=== PATIENT | male | born 1960 | race African-American/Black ===

== ENCOUNTER 2016-05-01 13:24 | Emergency (ER) | payer MEDICARE ==
[~2016-05-01 13:24] MED LIST: Iopamidol 370 76% 100 ML VIAL ONE
[2016-05-01] MEDS ORDERED: Sodium Chloride 0.9% 1,000 ML ONE (14:04)
[2016-05-01] MEDS ORDERED: Ondansetron HCl/PF 4 MG/2 ML Vial ONE ×2 (14:04→16:44)
[2016-05-01 14:28] LABS: Bilirubin Negative (Negative); Blood, Urine Trace (Negative); Glucose, Urine (Dipstick) Negative (Negative); Leukocyte Negative (Negative); Nitrite Negative (Negative); Protein, Urine (Dipstick) 30 mg/dL (Neg-Trace); Specific Gravity, Urine 1.015 (1.005-1.030)
[2016-05-01 14:29] LABS: Clarity Hazy (Clear)
[2016-05-01 14:31] LABS: #Basophils 0.1 thou/uL (0.0-0.2); #Eosinphils 0.1 thou/uL (0.0-0.7); #Lymphocytes 1.1 thou/uL (1.20-3.40); #Monocytes 0.8 thou/uL (0.11-0.59); #Neutrophils 5.4 thou/uL (1.40-6.50); %Basophils 1.8 % (0.0-1.0); %Eosinophils 1.9 % (0.0-10.0); %Lymphocytes 14.7 % (21.0-51.0); %Monocytes 11.1 % (0.0-10.0); %Neutrophils 70.5 % (42.0-75.0); Hemoglobin 14.6 g/dL (14.0-18.0); Mean Corpuscular HGB CONC 34.4 g/dL (32.0-36.0); Mean Corpuscular Hemoglobin 31.6 pg (27.0-31.0); Mean Platelet Volume 7.1 fL (7.4-10.4); Platelet Count 260 thou/uL (130-400); Red Blood Cell (RBC) Count 4.61 mill/uL (4.70-6.10); White Blood Cell (WBC) Count 7.6 thou/uL (4.8-10.8)
[2016-05-01 14:32] LABS: Bacteria/HPF Rare-Few HPF (None Seen); RBC/HPF 0-3 HPF (0-3); Squamous Epithelial None Seen HPF (0-3); WBC/HPF None Seen HPF (0-3)
[2016-05-01 14:47] LABS: ALT (SGPT) 9 U/L (0-55); AST (SGOT) 15 U/L (5-34); Albumin 3.8 g/dL (3.5-5.0); Alkaline Phosphatase 70 U/L (40-150); Anion Gap 13 mmol/L (10-20); BUN (Urea Nitrogen) 13 mg/dL (8.4-25.7); Bilirubin, Total 1.3 mg/dL (0.2-1.2); CK (CPK) 53 U/L (30-200); Calc. Creatinine Clearance 0 mL/min (70-130); Calcium 8.8 mg/dL (7.8-10.44); Carbon Dioxide 21 mmol/L (22-29); Chloride 109 mmol/L (98-107); Estimated GFR-MDRD 87; Globulin 3.2 g/dL (2.4-3.5); Glucose 87 mg/dL (70-105); Potassium 3.7 mmol/L (3.5-5.1); Sodium 139 mmol/L (136-145)
[2016-05-01 14:48] LABS: CKMB 0.6 ng/mL (0-6.6); Troponin I Less than 0.010 ng/mL (< 0.028)
--- NOTE | 2016-05-01 17:03 | CT ---
CT OF THE ABDOMEN AND PELVIS WITH IV CONTRAST: Indication: History of abdominal pain. Comparison: 02-14-11 FINDINGS: There is a mild subsegmental atelectasis. There is stable 1.4 cm heterogeneously enhancing lesion within the right hepatic duct suspicious for hemangioma. Additional 1.8 cm hypodensity within the right hepatic lobe is stable, also likely refl ecting a small hemangioma. Gallbladder is surgically absent. Pancreas and adrenal glands are normal appearing. There are multiple right renal cysts. There are ti ny hypodensities within the left kidney that cannot be further characterized. There is some subtle fatty infiltration seen surrounding the celiac axis posterior to the pancreas. This is nonspecific and best seen on Image 14 of Series 2. No drainable fluid collection is evident. There is normal appendix of the right lower quadrant. Prostate is enlarged measuring 6 cm. There are fat containing inguinal hernias. There is scattered colonic diverticula without evidence of diverticulitis. There is no evidence of o bstruction. There are scattered degenerative and osteoarthritic change. IMPRESSION: 1. Nonspecific fatty infiltration seen posterior to the pancreas near the celiac axis. Findings may reflect changes of pancreatitis. Recommend correlation. No drainable fluid collection is evident. 2. Stable heterogeneous predominately hypodense lesions within the right hepatic lobe when compared to 02-14-11, suspicious for cavernous hemangiomas. 3. Renal hypodensities bilaterally, most suspicious for small cysts. 4. Colonic diverticulosis. 5. Prostate enlargement. POS: [facility]
[2016-05-01 17:10] LABS: Amylase 63 U/L (25-125); Lipase 14 U/L (8-78)
== END 2016-05-01 17:43 | disposition home or self-care (01) ==
LOC: NAV ERS 13:24
DX: R10.33 Periumbilical pain (principal); R10.31 Right lower quadrant pain; I11.0 Hypertensive heart disease with heart failure; I50.9 Heart failure, unspecified; I25.2 Old myocardial infarction; Z79.82 Long term (current) use of aspirin; Z79.899 Other long term (current) drug therapy
CPT/HCPCS: 74177; 80053; 81003; 81015; 82150; 82550; 82553; 83690; 84484; 85025; 93005; 96361; 96374; 96375; 96376; J1170; J2270; J2405; J7050

== ENCOUNTER 2016-05-02 13:08 | Emergency (ER) | payer MEDICARE ==
[2016-05-02] MEDS ORDERED: Pantoprazole 40 MG VIAL ONE (13:36)
[2016-05-02] MEDS ORDERED: Sodium Chloride 0.9% 1,000 ML ONE (13:36)
[2016-05-02] MEDS ORDERED: Ondansetron HCl/PF 4 MG/2 ML Vial ONE (13:36)
[2016-05-02 14:10] LABS: Bilirubin Negative (Negative); Blood, Urine Moderate (Negative); Clarity Clear (Clear); Glucose, Urine (Dipstick) Negative (Negative); Leukocyte Negative (Negative); Nitrite Negative (Negative); Protein, Urine (Dipstick) 100 mg/dL (Neg-Trace)
[2016-05-02 14:14] LABS: ALT (SGPT) 20 U/L (0-55); AST (SGOT) 16 U/L (5-34); Albumin 3.9 g/dL (3.5-5.0); Alkaline Phosphatase 87 U/L (40-150); Anion Gap 14 mmol/L (10-20); BUN (Urea Nitrogen) 9 mg/dL (8.4-25.7); Bilirubin, Total 1.4 mg/dL (0.2-1.2); Calc. Creatinine Clearance 0 mL/min (70-130); Calcium 8.9 mg/dL (7.8-10.44); Carbon Dioxide 24 mmol/L (22-29); Chloride 106 mmol/L (98-107); Estimated GFR-MDRD 72; Globulin 3.5 g/dL (2.4-3.5); Glucose 99 mg/dL (70-105); Lipase 23 U/L (8-78); Potassium 4.1 mmol/L (3.5-5.1); Protein, Total 7.4 g/dL (6.0-8.3); Sodium 140 mmol/L (136-145)
[2016-05-02 14:20] LABS: Hemoglobin 15.5 g/dL (14.0-18.0); Mean Corpuscular HGB CONC 34.4 g/dL (32.0-36.0); Mean Corpuscular Hemoglobin 31.8 pg (27.0-31.0); Mean Corpuscular Volume 92.3 fl (80.0-94.0); Mean Platelet Volume 6.7 fL (7.4-10.4); Platelet Count 279 thou/uL (130-400); RBC Distribution Width 11.2 % (11.5-14.5); Red Blood Cell (RBC) Count 4.87 mill/uL (4.70-6.10); White Blood Cell (WBC) Count 7.2 thou/uL (4.8-10.8)
[2016-05-02 14:21] LABS: Band 1 % (5-11); Lymphocytes 20 % (21-51); MDiff Complete? YES; Monocytes 9 % (0-10); Neutrophil 70 % (42-75); PLT Morphology Comment Appears Adequate
[2016-05-02 14:24] LABS: Amphetamine Not Detected (NotDetected); Barbiturates Screen Not Detected (NotDetected); Benzodiazepine Screen Not Detected (NotDetected); Cocaine Metabolite Screen Not Detected (NotDetected); Medtox Control Line Valid? VALID (VALID); Methadone Not Detected (NotDetected); Methamphetamine Not Detected (NotDetected); Opiate Screen Detected (NotDetected); Oxycodone Screen Not Detected (NotDetected); Phencyclidine (PCP) Not Detected (NotDetected); THC/Cannabinoid Screen Not Detected (NotDetected); Tricyclic Screen Not Detected (NotDetected)
[2016-05-02] MEDS ORDERED: Lidocaine Viscous Sol 2% 15 ml UD Cup ONE (14:36)
[2016-05-02] MEDS ORDERED: Mag-Al Plus 1200 MG/1200 MG/120 MG/30 ML UDCUP ONE (14:36)
== END 2016-05-02 15:25 | disposition home or self-care (01) ==
LOC: NAV ERS 13:08
DX: K29.70 Gastritis, unspecified, without bleeding (principal); I11.0 Hypertensive heart disease with heart failure; I50.9 Heart failure, unspecified; I25.2 Old myocardial infarction; Z79.82 Long term (current) use of aspirin; Z79.899 Other long term (current) drug therapy
CPT/HCPCS: 80053; 80306; 81003; 83690; 83880; 85025; 96361; 96374; 96375; 96376; C9113; J2270; J2405; J7050

== ENCOUNTER 2016-07-27 16:37 | Emergency (ER) | payer MEDICARE ==
[2016-07-27] MEDS ORDERED: Ondansetron HCl/PF 4 MG/2 ML Vial ONE (17:12)
[2016-07-27] MEDS ORDERED: Sodium Chloride 0.9% 1,000 ML ONE (17:12)
[2016-07-27 17:38] LABS: #Basophils 0.1 thou/uL (0.0-0.2); #Eosinphils 0.2 thou/uL (0.0-0.7); #Lymphocytes 1.1 thou/uL (1.20-3.40); #Monocytes 0.6 thou/uL (0.11-0.59); #Neutrophils 4.1 thou/uL (1.40-6.50); %Basophils 1.5 % (0.0-1.0); %Lymphocytes 17.4 % (21.0-51.0); %Monocytes 10.1 % (0.0-10.0); Hemoglobin 15.9 g/dL (14.0-18.0); Mean Corpuscular HGB CONC 32.5 g/dL (32.0-36.0); Mean Corpuscular Hemoglobin 29.1 pg (27.0-31.0); Mean Corpuscular Volume 89.8 fl (80.0-94.0); Mean Platelet Volume 6.3 fL (7.4-10.4); Platelet Count 275 thou/uL (130-400); RBC Distribution Width 11.4 % (11.5-14.5); Red Blood Cell (RBC) Count 5.44 mill/uL (4.70-6.10); White Blood Cell (WBC) Count 6.1 thou/uL (4.8-10.8)
[2016-07-27 17:48] LABS: Blood, Urine Small (Negative); Glucose, Urine (Dipstick) Negative (Negative); Leukocyte Trace (Negative); Nitrite Positive (Negative); Protein, Urine (Dipstick) > or equal to 300 mg/dL (Neg-Trace); Urobilinogen 0.2 mg/dL (0.2-1.0); pH, Urine 5.5 (5.0-9.0)
[2016-07-27 17:51] LABS: Clarity SL HAZY (Clear); Icto Negative (Negative)
[2016-07-27 17:51] LABS: ALT (SGPT) 13 U/L (8-55); AST (SGOT) 12 U/L (5-34); Albumin 4.2 g/dL (3.5-5.0); Alkaline Phosphatase 66 U/L (40-150); Anion Gap 14 mmol/L (10-20); BUN (Urea Nitrogen) 18 mg/dL (8.4-25.7); Bilirubin, Total 1.4 mg/dL (0.2-1.2); CK (CPK) 40 U/L (30-200); CKMB 1.2 ng/mL (0-6.6); Calc. Creatinine Clearance 0 mL/min (70-130); Calcium 9.5 mg/dL (7.8-10.44); Carbon Dioxide 19 mmol/L (22-29); Chloride 108 mmol/L (98-107); Estimated GFR-MDRD 80; Globulin 3.2 g/dL (2.4-3.5); Glucose 93 mg/dL (70-105); Lipase 28 U/L (8-78); Potassium 4.1 mmol/L (3.5-5.1); Protein, Total 7.4 g/dL (6.0-8.3); Sodium 137 mmol/L (136-145); Troponin I 0.011 ng/mL (< 0.028)
[2016-07-27 17:57] LABS: Bacteria/HPF Rare-Few HPF (None Seen); RBC/HPF 0-3 HPF (0-3); Specific Gravity, Urine 1.033 (1.002-1.036); Squamous Epithelial 0-3 HPF (0-3); WBC/HPF 0-3 HPF (0-3)
[2016-07-27] MEDS ORDERED: Acetaminophen 500 MG TAB ONE (18:46)
== END 2016-07-27 18:52 | disposition home or self-care (01) ==
LOC: NAV ERS 16:37
DX: R19.7 Diarrhea, unspecified (principal); I25.10 Atherosclerotic heart disease of native coronary artery without angina pectoris; I25.2 Old myocardial infarction; I11.0 Hypertensive heart disease with heart failure; I50.9 Heart failure, unspecified; G45.9 Transient cerebral ischemic attack, unspecified; Z79.82 Long term (current) use of aspirin; Z79.899 Other long term (current) drug therapy
CPT/HCPCS: 80053; 81003; 81015; 82150; 82550; 82553; 83690; 84484; 85025; 87086; 93005; 96361; 96374; J2405; J7050

== ENCOUNTER 2017-04-30 17:37 | Emergency (ER) | payer MEDICARE ==
[2017-04-30] MEDS ORDERED: Cyclobenzaprine 10 MG TAB ONE (17:53)
[2017-04-30] MEDS ORDERED: Ketorolac Tromethamine 60 MG/2 ML VIAL ONE (17:53)
== END 2017-04-30 18:44 | disposition home or self-care (01) ==
LOC: NAV ERS 17:37
DX: M54.5 Low back pain (principal); I25.10 Atherosclerotic heart disease of native coronary artery without angina pectoris; I11.0 Hypertensive heart disease with heart failure; I50.9 Heart failure, unspecified; M19.90 Unspecified osteoarthritis, unspecified site; I25.2 Old myocardial infarction; Z86.73 Personal history of transient ischemic attack (TIA), and cerebral infarction without residual deficits; Z79.02 Long term (current) use of antithrombotics/antiplatelets; Z79.82 Long term (current) use of aspirin; Z79.899 Other long term (current) drug therapy
CPT/HCPCS: 96372; J1885

== ENCOUNTER 2017-07-24 20:41 | Emergency (ER) | payer MEDICARE ==
[2017-07-24] MEDS ORDERED: Morphine 4 MG/ML Carpuject ONE ×2 (21:01→21:41)
[2017-07-24 21:09] LABS: #Basophils 0.2 thou/uL (0.0-0.2); #Eosinphils 0.2 thou/uL (0.0-0.7); #Lymphocytes 1.7 thou/uL (1.20-3.40); #Monocytes 0.9 thou/uL (0.11-0.59); #Neutrophils 4.8 thou/uL (1.40-6.50); %Eosinophils 2.4 % (0.0-10.0); %Lymphocytes 21.8 % (21.0-51.0); %Monocytes 11.5 % (0.0-10.0); %Neutrophils 62.2 % (42.0-75.0); Hemoglobin 14.6 g/dL (14.0-18.0); Mean Corpuscular HGB CONC 32.3 g/dL (32.0-36.0); Mean Corpuscular Hemoglobin 29.2 pg (27.0-31.0); Mean Corpuscular Volume 90.2 fL (78.0-98.0); Mean Platelet Volume 7.2 fL (7.4-10.4); Platelet Count 272 thou/uL (130-400); RBC Distribution Width 11.5 % (11.5-14.5); Red Blood Cell (RBC) Count 5.02 mill/uL (4.70-6.10); White Blood Cell (WBC) Count 7.8 thou/uL (4.8-10.8)
[2017-07-24 21:14] LABS: PTT 27.8 SEC (22.9-36.1); Prothrombin Time 13.5 SEC (12.0-14.7)
[2017-07-24 21:23] LABS: CKMB 0.5 ng/mL (0-6.6); Troponin I Less than 0.010 ng/mL (< 0.028)
[2017-07-24 21:30] LABS: ALT (SGPT) 16 U/L (8-55); AST (SGOT) 11 U/L (5-34); Albumin 4.1 g/dL (3.5-5.0); Alkaline Phosphatase 60 U/L (40-150); Anion Gap 12 mmol/L (10-20); BUN (Urea Nitrogen) 18 mg/dL (8.4-25.7); Bilirubin, Total 0.8 mg/dL (0.2-1.2); CK (CPK) 62 U/L (30-200); Calc. Creatinine Clearance 0 mL/min (70-130); Calcium 9.4 mg/dL (7.8-10.44); Carbon Dioxide 26 mmol/L (22-29); Chloride 107 mmol/L (98-107); Estimated GFR-MDRD 63; Glucose 83 mg/dL (70-105); Potassium 4.4 mmol/L (3.5-5.1); Protein, Total 7.1 g/dL (6.0-8.3); Sodium 141 mmol/L (136-145)
--- NOTE | 2017-07-24 21:33 | RAD ---
RADIOGRAPH CHEST 1 VIEW: 07/24/17 HISTORY: 56-year-old male with acute chest pain and tachycardia. FINDINGS: There is no air space density, pulmonary edema, or pneumothorax. The lateral costophrenic angles are sharp. There is magnification of the cardiac shadow due to lordotic positioning. There are sternotom y wires. There are surgical clips overlying the left upper cardiac shadow and mediastinum. IMPRESSION: 1. No acute pulmonary findings. 2. Status post coronary artery bypass graft surgery is evidence for coronary atherosclerotic dis ease. maris [] POS: [facility]
== END 2017-07-24 22:13 | disposition short-term general hospital (02) ==
LOC: NAV ERS 20:41
DX: R07.9 Chest pain, unspecified (principal); M19.90 Unspecified osteoarthritis, unspecified site; I25.10 Atherosclerotic heart disease of native coronary artery without angina pectoris; I25.2 Old myocardial infarction; I11.0 Hypertensive heart disease with heart failure; I50.9 Heart failure, unspecified; Z86.73 Personal history of transient ischemic attack (TIA), and cerebral infarction without residual deficits; Z79.899 Other long term (current) drug therapy; Z79.82 Long term (current) use of aspirin
CPT/HCPCS: 71045; 80053; 82553; 84484; 85025; 85610; 85730; 93005; 94760; 96374; 96376; J2270

== ENCOUNTER 2017-09-11 18:12 | Emergency (ER) | payer MEDICARE ==
[2017-09-11] MEDS ORDERED: methylPREDNISolone Acetate 40 mg/ml Vial ONE (18:40)
== END 2017-09-11 19:05 | disposition home or self-care (01) ==
LOC: NAV ERS 18:12
DX: T78.40XA Allergy, unspecified, initial encounter (principal); I11.0 Hypertensive heart disease with heart failure; I50.9 Heart failure, unspecified; I25.10 Atherosclerotic heart disease of native coronary artery without angina pectoris; I25.2 Old myocardial infarction; Z86.73 Personal history of transient ischemic attack (TIA), and cerebral infarction without residual deficits; Z79.82 Long term (current) use of aspirin; Z79.899 Other long term (current) drug therapy
CPT/HCPCS: 96372; J1030

== ENCOUNTER 2017-12-12 15:43 | Emergency (ER) | payer MEDICARE ==
[2017-12-12] MEDS ORDERED: Ketorolac Tromethamine 30 MG/ML VIAL ONE (16:10)
[2017-12-12] MEDS ORDERED: Ondansetron PF 4 MG/2 ML Vial ONE (16:18)
[2017-12-12 16:35] LABS: #Basophils 0.1 thou/uL (0.0-0.2); #Eosinphils 0.1 thou/uL (0.0-0.7); #Lymphocytes 1.4 thou/uL (1.20-3.40); #Monocytes 0.8 thou/uL (0.11-0.59); #Neutrophils 3.9 thou/uL (1.40-6.50); %Basophils 1.1 % (0.0-1.0); %Lymphocytes 22.1 % (21.0-51.0); %Monocytes 12.7 % (0.0-10.0); %Neutrophils 62.1 % (42.0-75.0); Hemoglobin 13.9 g/dL (14.0-18.0); Mean Corpuscular HGB CONC 32.9 g/dL (32.0-36.0); Mean Corpuscular Hemoglobin 30.1 pg (27.0-31.0); Mean Corpuscular Volume 91.6 fL (78.0-98.0); Mean Platelet Volume 6.5 fL (7.4-10.4); Platelet Count 279 thou/uL (130-400); RBC Distribution Width 11.1 % (11.5-14.5); Red Blood Cell (RBC) Count 4.62 mill/uL (4.70-6.10); White Blood Cell (WBC) Count 6.3 thou/uL (4.8-10.8)
[2017-12-12 16:41] LABS: Bilirubin Negative (Negative); Blood, Urine Trace (Negative); Glucose, Urine (Dipstick) Negative (Negative); Leukocyte Negative (Negative); Nitrite Negative (Negative); Protein, Urine (Dipstick) 100 mg/dL (Neg-Trace)
[2017-12-12 16:42] LABS: Clarity SL HAZY (Clear)
[2017-12-12 16:44] LABS: RBC/HPF 0-3 HPF (0-3); WBC/HPF 0-3 HPF (0-3)
[2017-12-12 16:50] LABS: ALT (SGPT) 11 U/L (8-55); AST (SGOT) 12 U/L (5-34); Alkaline Phosphatase 64 U/L (40-150); Anion Gap 12 mmol/L (10-20); BUN (Urea Nitrogen) 15 mg/dL (8.4-25.7); Bilirubin, Total 0.8 mg/dL (0.2-1.2); Calc. Creatinine Clearance 0 mL/min (70-130); Calcium 9.1 mg/dL (7.8-10.44); Carbon Dioxide 25 mmol/L (22-29); Chloride 107 mmol/L (98-107); Estimated GFR-MDRD 61; Globulin 2.8 g/dL (2.4-3.5); Glucose 83 mg/dL (70-105); Lipase 31 U/L (8-78); Potassium 3.8 mmol/L (3.5-5.1); Protein, Total 6.8 g/dL (6.0-8.3); Sodium 140 mmol/L (136-145)
[2017-12-12 16:52] LABS: CKMB 0.4 ng/mL (0-6.6); Troponin I 0.016 ng/mL (< 0.028)
[2017-12-12] MEDS ORDERED: cloNIDine 0.1 MG TAB ONE ×2 (17:17→17:19)
--- NOTE | 2017-12-12 18:59 | CT ---
NONCONTRAST CT ABDOMEN AND PELVIS: 12/12/17 HISTORY: Left sided abdominal pain for two days which is getting progressively worse. History of ureteral calc rivera. COMPARISON: Postcontrast CT abdomen and pelvis on 05/01/16. There is dependent bibasilar atelectasis. Post cholecystectomy changes are again seen. Low density lesions are again seen in the right hepatic lobe seen on the prior study as well as the s tudy in 2012 again favored to represent hemangiomas given stability since 2012. There is stable subcentimeter hypodense lesions in the medial aspect mid portion right kidney stable from prior exams and statistically likely representing cysts. No renal or ureteral calculi are seen b ilaterally, and there is no hydronephrosis present. The urinary bladder is decompressed. The spleen, pancreas, and bilateral adrenal glands demonstrate grossly normal nonenhanced CT appearan ce. There is colonic diverticulosis present. The cecum is located in the right upper quadrant. The appendix is visualized and normal in caliber. L oops of small bowel are normal in caliber. Minimal vascular calcifications are seen in the abdominal aorta involving the iliac arteries. Small fat containing right inguinal hernia is present. There has been no interval change when compared to prior exams. Postsurgical changes are seen related to median sternotomy. Surgical clips are seen in the medial left thigh. IMPRESSION: 1. No renal or ureteral calculi are seen bilaterally. 2. Stable hypodense right hepatic lobe lesions likely representing hemangiomas. 3. Stable hypodense lesions medial aspect right kidney likely related to small renal cysts. 4. Post cholecystectomy changes. 5. No CT evidence of appendicitis. 6. Colonic diverticulosis. There are no definitive findings to suggest diverticulitis. POS: [facility]
== END 2017-12-12 18:24 | disposition home or self-care (01) ==
LOC: NAV ERS 15:43
DX: S23.3XXA Sprain of ligaments of thoracic spine, initial encounter (principal); I25.10 Atherosclerotic heart disease of native coronary artery without angina pectoris; I25.2 Old myocardial infarction; I11.0 Hypertensive heart disease with heart failure; I50.9 Heart failure, unspecified; Z86.73 Personal history of transient ischemic attack (TIA), and cerebral infarction without residual deficits; X58.XXXA Exposure to other specified factors, initial encounter
CPT/HCPCS: 74176; 80053; 81003; 81015; 82553; 83690; 84484; 85025; 93005; J1885; J2405

== ENCOUNTER 2018-01-22 21:55 | Emergency (ER) | payer MEDICARE ==
[2018-01-22 22:19] LABS: #Basophils 0.1 thou/uL (0.0-0.2); #Eosinphils 0.2 thou/uL (0.0-0.7); #Lymphocytes 1.7 thou/uL (1.20-3.40); #Neutrophils 4.5 thou/uL (1.40-6.50); %Basophils 1.2 % (0.0-1.0); %Eosinophils 2.6 % (0.0-10.0); %Lymphocytes 23.3 % (21.0-51.0); %Monocytes 12.8 % (0.0-10.0); %Neutrophils 60.1 % (42.0-75.0); Hemoglobin 14.8 g/dL (14.0-18.0); Mean Corpuscular HGB CONC 32.4 g/dL (32.0-36.0); Mean Corpuscular Hemoglobin 29.5 pg (27.0-31.0); Mean Corpuscular Volume 91.1 fL (78.0-98.0); Mean Platelet Volume 6.5 fL (7.4-10.4); Platelet Count 286 thou/uL (130-400); RBC Distribution Width 11.1 % (11.5-14.5); Red Blood Cell (RBC) Count 5.02 mill/uL (4.70-6.10); White Blood Cell (WBC) Count 7.4 thou/uL (4.8-10.8)
[2018-01-22 22:33] LABS: ALT (SGPT) 14 U/L (8-55); AST (SGOT) 10 U/L (5-34); Albumin 4.1 g/dL (3.5-5.0); Alkaline Phosphatase 86 U/L (40-150); Anion Gap 13 mmol/L (10-20); BUN (Urea Nitrogen) 16 mg/dL (8.4-25.7); Bilirubin, Total 0.6 mg/dL (0.2-1.2); Calc. Creatinine Clearance 0 mL/min (70-130); Calcium 9.3 mg/dL (7.8-10.44); Carbon Dioxide 24 mmol/L (22-29); Chloride 104 mmol/L (98-107); Estimated GFR-MDRD 72; Globulin 3.3 g/dL (2.4-3.5); Glucose 74 mg/dL (70-105); Potassium 3.9 mmol/L (3.5-5.1); Protein, Total 7.4 g/dL (6.0-8.3); Sodium 137 mmol/L (136-145)
[2018-01-22] MEDS ORDERED: Nitroglycerin 0.4 MG TAB (25 Tab Bottle) ONE (22:41)
[2018-01-22 22:54] LABS: CK (CPK) 87 U/L (30-200); Lipase 25 U/L (8-78)
--- NOTE | 2018-01-22 23:37 | CT ---
CT ANGIOGRAM CHEST AND ABDOMEN WITH IV CONTRAST AND 3D MIP RECONSTRUCTIONS: 01/22/18 PROVIDED CLINICAL HISTORY: Back pain/chest pain. FINDINGS: Comparison is made with the study dated 05/01/16. There is no evidence for aortic dissection. Vascular calcification is seen. The lungs are free of sig nificant opacity. No pleural fluid or pneumothorax apparent. Airway appears patent and of normal veronique dony. No evidence for thoracic lymph node enlargement. The solid abdominal organs are suboptimally evaluated in the arterial phase of contrast but demonstra te an unremarkable CT appearance for the phase of contrast in which this study was acquired. Hepatic cysts are again seen. There is no bowel dilatation, inflammatory fat stranding, free fluid or free air apparent. The aorta is nonaneurysmal. The osseous structures demonstrate no concerning lytic or blastic lesions. IMPRESSION: No evidence for aortic dissection or other acute abnormality. POS: [facility]
== END 2018-01-22 23:40 | disposition left against medical advice (07) ==
LOC: NAV ERS 21:55
DX: R42 Dizziness and giddiness (principal); R55 Syncope and collapse; R07.9 Chest pain, unspecified; I25.10 Atherosclerotic heart disease of native coronary artery without angina pectoris; I11.0 Hypertensive heart disease with heart failure; I50.9 Heart failure, unspecified; Z86.73 Personal history of transient ischemic attack (TIA), and cerebral infarction without residual deficits; Z79.899 Other long term (current) drug therapy; Z79.82 Long term (current) use of aspirin
CPT/HCPCS: 71275; 80053; 82550; 83690; 84484; 85025; 93005

== ENCOUNTER 2018-04-18 13:52 | Emergency (ER) | payer MEDICARE ==
[2018-04-18] MEDS ORDERED: Ketorolac Tromethamine 30 MG/ML VIAL ONE (14:34)
== END 2018-04-18 15:10 | disposition home or self-care (01) ==
LOC: NAV ERS 13:52
DX: M54.2 Cervicalgia (principal); I25.2 Old myocardial infarction; I11.0 Hypertensive heart disease with heart failure; I50.9 Heart failure, unspecified; Z79.899 Other long term (current) drug therapy
CPT/HCPCS: 93005; 96372; J1885

== ENCOUNTER 2018-09-02 11:43 | Emergency (ER) | payer MEDICARE | END 2018-09-02 12:30 | disposition home or self-care (01) | LOC: NAV ERS 11:43 | DX: M77.11 Lateral epicondylitis, right elbow (principal); I25.10 Atherosclerotic heart disease of native coronary artery without angina pectoris; I25.2 Old myocardial infarction; I11.0 Hypertensive heart disease with heart failure; I50.9 Heart failure, unspecified; Z86.73 Personal history of transient ischemic attack (TIA), and cerebral infarction without residual deficits; Z79.899 Other long term (current) drug therapy; Z79.82 Long term (current) use of aspirin | CPT/HCPCS: 99281 ==

== ENCOUNTER 2019-05-28 16:42 | Outpatient (CLI) | payer MEDICARE ==
[2019-05-28 17:44] LABS: CKMB 0.5 ng/mL (0-6.6); Troponin I Less than 0.010 ng/mL (< 0.028)
== END 2019-05-28 16:43 | disposition home or self-care (01) ==
LOC: NAV LAB 16:42
PROVIDERS: ATTEND Internal Medicine Cardiovascular Disease
DX: I25.10 Atherosclerotic heart disease of native coronary artery without angina pectoris (principal); R07.9 Chest pain, unspecified
CPT/HCPCS: 36415; 82553; 84484

== ENCOUNTER 2019-07-31 18:09 | Emergency (ER) | payer MEDICARE, OTHER ==
[2019-08-01 14:47] LABS: SARS-CoV-2 MS2 Positive; SARS-CoV-2 N Gene Negative; SARS-CoV-2 S Gene Negative; SARS-CoV-2 orf1ab Negative
== END 2019-07-31 18:43 | disposition home or self-care (01) ==
LOC: NAV ERS 18:09
DX: Z20.828 Contact with and (suspected) exposure to other viral communicable diseases (principal); I11.0 Hypertensive heart disease with heart failure; I50.9 Heart failure, unspecified; I25.2 Old myocardial infarction; Z86.73 Personal history of transient ischemic attack (TIA), and cerebral infarction without residual deficits
CPT/HCPCS: 99283; U0003; 87635

== ENCOUNTER 2019-11-04 18:54 | Emergency (ER) | payer MEDICARE | END 2019-11-04 19:23 | disposition home or self-care (01) | LOC: NAV ERS 18:54 | DX: S80.862A Insect bite (nonvenomous), left lower leg, initial encounter (principal); I25.2 Old myocardial infarction; I11.0 Hypertensive heart disease with heart failure; I50.9 Heart failure, unspecified; W57.XXXA Bitten or stung by nonvenomous insect and other nonvenomous arthropods, initial encounter | CPT/HCPCS: 99282 ==

== ENCOUNTER 2020-02-16 13:56 | Emergency (ER) | payer MEDICARE ==
[2020-02-16] MEDS ORDERED: Ketorolac Tromethamine 30 MG/ML VIAL ONE (14:16)
== END 2020-02-16 14:40 | disposition home or self-care (01) ==
LOC: NAV ERS 13:56
DX: M54.42 Lumbago with sciatica, left side (principal); I25.2 Old myocardial infarction; I11.0 Hypertensive heart disease with heart failure; I50.9 Heart failure, unspecified; Z79.899 Other long term (current) drug therapy
CPT/HCPCS: 96372; 99283; J1885

== ENCOUNTER 2020-05-28 16:53 | Emergency (ER) | payer MEDICARE ==
[2020-05-28] MEDS ORDERED: Sodium Chloride 0.9% 1,000 ML ONE (17:34)
[2020-05-28 17:44] LABS: #Basophils 0.2 thou/uL (0.0-0.2); #Lymphocytes 1.6 thou/uL (1.20-3.40); #Monocytes 1.2 thou/uL (0.11-0.59); #Neutrophils 7.1 thou/uL (1.40-6.50); %Basophils 2.2 % (0.0-1.0); %Eosinophils 0.3 % (0.0-10.0); %Lymphocytes 15.7 % (21.0-51.0); %Monocytes 11.3 % (0.0-10.0); %Neutrophils 70.5 % (42.0-75.0); Mean Corpuscular HGB CONC 31.7 g/dL (32.0-36.0); Mean Corpuscular Hemoglobin 29.5 pg (27.0-31.0); Mean Corpuscular Volume 93.2 fL (78.0-98.0); Mean Platelet Volume 6.2 fL (7.4-10.4); Platelet Count 296 thou/uL (130-400); RBC Distribution Width 11.4 % (11.5-14.5); Red Blood Cell (RBC) Count 4.41 mill/uL (4.70-6.10); White Blood Cell (WBC) Count 10.1 thou/uL (4.8-10.8)
[2020-05-28 17:59] LABS: ALT (SGPT) 14 U/L (8-55); AST (SGOT) 11 U/L (5-34); Albumin 3.7 g/dL (3.5-5.0); Alkaline Phosphatase 96 U/L (40-110); Anion Gap 15 mmol/L (10-20); BUN (Urea Nitrogen) 17 mg/dL (8.4-25.7); Bilirubin, Total 1.3 mg/dL (0.2-1.2); Calc. Creatinine Clearance 0 mL/min (70-130); Calcium 8.5 mg/dL (7.8-10.44); Carbon Dioxide 23 mmol/L (22-29); Chloride 104 mmol/L (98-107); Globulin 3.3 g/dL (2.4-3.5); Glucose 92 mg/dL (70-105); Sodium 138 mmol/L (136-145)
[2020-05-28 18:18] LABS: Bilirubin Small (Negative); Blood, Urine Negative (Negative); Glucose, Urine (Dipstick) Negative (Negative); Ketone, Urine Negative (Negative); Leukocyte Negative (Negative); Nitrite Negative (Negative); Protein, Urine (Dipstick) 100 mg/dL (Neg-Trace); Urobilinogen > or = 8.0 mg/dL (Less than 2); pH, Urine 5.5 (5.0-9.0)
[2020-05-28] MEDS ORDERED: cefTRIAXone\\ROCEPHIN 2 GM VIAL ONE (18:21)
[2020-05-28] MEDS ORDERED: Sodium Chloride 0.9% 100 ML ONE (18:21)
[2020-05-28 18:24] LABS: Clarity SL HAZY (Clear); Specific Gravity, Urine 1.028 (1.002-1.036)
[2020-05-28 18:27] LABS: RBC/HPF 0-3 HPF (0-3); Squamous Epithelial 0-3 HPF (0-3); WBC/HPF 0-3 HPF (0-3)
[2020-05-28] MEDS ORDERED: Ondansetron PF 4 MG/2 ML Vial ONE (18:28)
[2020-05-28] MEDS ORDERED: Morphine 4 MG/ML VIAL ONE (18:28)
[2020-05-28] MEDS ORDERED: Doxycycline 100 MG CAP ONE (19:23)
== END 2020-05-28 19:30 | disposition home or self-care (01) ==
LOC: NAV ERS 16:53
DX: R05 Cough (principal); R09.81 Nasal congestion; R50.9 Fever, unspecified; R07.9 Chest pain, unspecified; R00.0 Tachycardia, unspecified; I25.10 Atherosclerotic heart disease of native coronary artery without angina pectoris; I11.0 Hypertensive heart disease with heart failure; I50.9 Heart failure, unspecified; I25.2 Old myocardial infarction; Z86.73 Personal history of transient ischemic attack (TIA), and cerebral infarction without residual deficits; Z79.82 Long term (current) use of aspirin; Z79.899 Other long term (current) drug therapy; Z87.39 Personal history of other diseases of the musculoskeletal system and connective tissue
CPT/HCPCS: 71045; 80053; 81003; 81015; 83605; 83735; 83880; 84484; 85025; 87040; 93005; 94760; 96365; 96375; J0696; J2270; J2405; J3490; J7050

== ENCOUNTER 2020-06-29 17:46 | Emergency (ER) | payer MEDICARE ==
[2020-06-29] MEDS ORDERED: Ketorolac Tromethamine 30 MG/ML VIAL ONE (18:45)
== END 2020-06-29 19:04 | disposition home or self-care (01) ==
LOC: NAV ERS 17:46
DX: M54.42 Lumbago with sciatica, left side (principal); Z79.82 Long term (current) use of aspirin; Z79.899 Other long term (current) drug therapy
CPT/HCPCS: 96372; 99283; J1885

== ENCOUNTER 2021-04-20 10:17 | Outpatient (CLI) | payer MEDICARE, OTHER | END 2021-04-20 10:18 | disposition home or self-care (01) | LOC: NAV RAD 10:17 | PROVIDERS: ATTEND Neurological Surgery | DX: M54.16 Radiculopathy, lumbar region (principal); Z98.890 Other specified postprocedural states | CPT/HCPCS: 72100 ==

== ENCOUNTER 2022-06-08 07:46 | Inpatient (IN) | payer MEDICARE ==
[2022-06-08] MEDS ORDERED: Acetaminophen 650 MG Suppository PR PRN (12:53)
[2022-06-08] MEDS ORDERED: Benzonatate 100 MG CAP PO PRN (12:53)
[2022-06-08] MEDS ORDERED: Guaifenesin DM 100-10/5 ML UDCUP PO PRN (12:53)
[2022-06-08] MEDS ORDERED: Sodium Chloride 0.65% Nasal 44 ML BOT EA NARE PRN (12:53)
[2022-06-08] MEDS ORDERED: Calcium Carbonate 500 MG ChewTAB PO PRN (12:53)
[2022-06-08] MEDS ORDERED: Bisacodyl 5 MG TAB PO PRN (12:53)
[2022-06-08] MEDS ORDERED: Promethazine HCl 25 MG SUPP PR PRN (12:53)
[2022-06-08] MEDS ORDERED: Bisacodyl 10 MG SUPP PR PRN (12:53)
[2022-06-08] MEDS ORDERED: Acetaminophen 325 MG TAB PO PRN (12:53)
[2022-06-08] MEDS ORDERED: HYDROcodone/Acetaminophen 5/325 mg Tablet PO PRN (12:53)
[2022-06-08] MEDS ORDERED: Artificial Tear Sol 15 ML BOT EA EYE PRN (12:53)
[2022-06-08] MEDS ORDERED: Nitroglycerin 0.4 MG TAB (25 Tab Bottle) SL PRN (14:46)
[2022-06-08] MEDS ORDERED: Simethicone Chewable 80 MG TAB PO PRN (14:46)
[2022-06-08] MEDS: HYDROcodone/Acetaminophen 5/325 mg Tablet PO PRN ×2 (17:00→21:20)
[2022-06-08] MEDS: Sodium Bicarbonate Tab 325 MG TAB PO SCH (21:20)
[2022-06-08] MEDS: Carvedilol 25 MG TAB PO SCH (21:21)
[2022-06-08] MEDS: Atorvastatin Calcium 20 MG TAB PO SCH (21:21)
[2022-06-08] MEDS: Cefdinir 300 MG CAP PO SCH (21:21)
[2022-06-09] MEDS: HYDROcodone/Acetaminophen 5/325 mg Tablet PO PRN ×3 (05:57→21:02)
[2022-06-09 06:08] LABS: #Basophils 0.1 thou/uL (0.0-0.2); #Eosinphils 0.2 thou/uL (0.0-0.7); #Lymphocytes 1.3 thou/uL (1.20-3.40); #Monocytes 1.5 thou/uL (0.11-0.59); #Neutrophils 11.9 thou/uL (1.40-6.50); %Basophils 0.8 % (0.0-1.0); %Eosinophils 1.3 % (0.0-10.0); %Lymphocytes 8.8 % (21.0-51.0); %Monocytes 9.8 % (0.0-10.0); %Neutrophils 79.4 % (42.0-75.0); Mean Corpuscular HGB CONC 33.2 g/dL (32.0-36.0); Mean Corpuscular Hemoglobin 30.6 pg (27.0-31.0); Mean Corpuscular Volume 92.2 fl (78.0-98.0); Mean Platelet Volume 5.6 fL (7.4-10.4); Platelet Count 348 10x3/uL (130-400); RBC Distribution Width 12.4 % (11.5-14.5); Red Blood Cell (RBC) Count 2.63 mill/uL (4.70-6.10)
[2022-06-09 06:20] LABS: ALT (SGPT) 29 U/L (8-55); AST (SGOT) 22 U/L (5-34); Albumin 3.2 g/dL (3.4-4.8); Alkaline Phosphatase 73 U/L (40-110); Anion Gap 15 mmol/L (10-20); BUN (Urea Nitrogen) 18 mg/dL (8.4-25.7); Bilirubin, Total 1.2 mg/dL (0.2-1.2); Calc. Creatinine Clearance 73 mL/min (70-130); Calcium 8.9 mg/dL (7.8-10.44); Carbon Dioxide 23 mmol/L (23-31); Chloride 110 mmol/L (98-107); Estimated GFR 68; Globulin 3.1 g/dL (2.4-3.5); Glucose 102 mg/dL (80-115); Potassium 3.7 mmol/L (3.5-5.1); Protein, Total 6.3 g/dL (5.8-8.1); Sodium 144 mmol/L (136-145)
[2022-06-09] MEDS: Sodium Bicarbonate Tab 325 MG TAB PO SCH ×2 (07:54→21:01)
[2022-06-09] MEDS: Amlodipine 5 MG TAB PO SCH (07:55)
[2022-06-09] MEDS: Azithromycin 250 MG TAB PO SCH (07:55)
[2022-06-09] MEDS: Clopidogrel Bisulfate 75 MG TAB PO SCH (07:55)
[2022-06-09] MEDS: Tamsulosin HCl 0.4 MG CAP PO SCH (07:56)
[2022-06-09] MEDS: Carvedilol 25 MG TAB PO SCH ×2 (07:56→21:02)
[2022-06-09] MEDS: Cefdinir 300 MG CAP PO SCH ×2 (07:56→21:01)
[2022-06-09] MEDS: Atorvastatin Calcium 20 MG TAB PO SCH (21:01)
[2022-06-09] MEDS: Senokot S 8.6-50 MG TAB PO PRN (21:01)
[2022-06-10] MEDS: Cefdinir 300 MG CAP PO SCH (08:40)
[2022-06-10] MEDS: Amlodipine 5 MG TAB PO SCH (08:41)
[2022-06-10] MEDS: Tamsulosin HCl 0.4 MG CAP PO SCH (08:41)
[2022-06-10] MEDS: Sodium Bicarbonate Tab 325 MG TAB PO SCH ×2 (08:41→21:32)
[2022-06-10] MEDS: Carvedilol 25 MG TAB PO SCH ×2 (08:42→21:32)
[2022-06-10] MEDS: Clopidogrel Bisulfate 75 MG TAB PO SCH (08:42)
[2022-06-10] MEDS: Azithromycin 250 MG TAB PO SCH (08:42)
[2022-06-10] MEDS: Senokot S 8.6-50 MG TAB PO PRN (08:45)
[2022-06-10] MEDS: HYDROcodone/Acetaminophen 5/325 mg Tablet PO PRN ×2 (08:46→18:30)
[2022-06-10] MEDS: Cepastat Lozenges 1 LOZ PO PRN (18:32)
[2022-06-10] MEDS: traZODone HCl 50 MG TAB PO PRN (21:31)
[2022-06-10] MEDS: Atorvastatin Calcium 20 MG TAB PO SCH (21:32)
[2022-06-11] MEDS: Polyethylene Glycol 3350 17 GM Packet PO SCH (08:26)
[2022-06-11] MEDS: Tamsulosin HCl 0.4 MG CAP PO SCH (08:28)
[2022-06-11] MEDS: Amlodipine 5 MG TAB PO SCH (08:28)
[2022-06-11] MEDS: Clopidogrel Bisulfate 75 MG TAB PO SCH (08:28)
[2022-06-11] MEDS: Sodium Bicarbonate Tab 325 MG TAB PO SCH ×2 (08:28→20:12)
[2022-06-11] MEDS: Carvedilol 25 MG TAB PO SCH ×2 (08:29→20:12)
[2022-06-11] MEDS: HYDROcodone/Acetaminophen 5/325 mg Tablet PO PRN ×3 (08:32→18:05)
[2022-06-11] MEDS: Cepastat Lozenges 1 LOZ PO PRN (20:12)
[2022-06-11] MEDS: Atorvastatin Calcium 20 MG TAB PO SCH (20:12)
[2022-06-11] MEDS: traZODone HCl 50 MG TAB PO PRN (21:45)
[2022-06-12 06:05] LABS: #Basophils 0.1 thou/uL (0.0-0.2); #Eosinphils 0.1 thou/uL (0.0-0.7); #Lymphocytes 1.5 thou/uL (1.20-3.40); #Monocytes 1.3 thou/uL (0.11-0.59); #Neutrophils 9.5 thou/uL (1.40-6.50); %Eosinophils 1.1 % (0.0-10.0); %Lymphocytes 12.1 % (21.0-51.0); %Monocytes 10.6 % (0.0-10.0); %Neutrophils 75.2 % (42.0-75.0); Hemoglobin 7.5 g/dL (14.0-18.0); Mean Corpuscular Hemoglobin 30.9 pg (27.0-31.0); Mean Corpuscular Volume 93.6 fl (78.0-98.0); Mean Platelet Volume 5.3 fL (7.4-10.4); Platelet Count 484 10x3/uL (130-400); RBC Distribution Width 14.9 % (11.5-14.5); Red Blood Cell (RBC) Count 2.45 mill/uL (4.70-6.10); White Blood Cell (WBC) Count 12.7 10x3/uL (4.8-10.8)
[2022-06-12 06:20] LABS: Anion Gap 12 mmol/L (10-20); BUN (Urea Nitrogen) 12 mg/dL (8.4-25.7); Calc. Creatinine Clearance 71 mL/min (70-130); Calcium 8.1 mg/dL (7.8-10.44); Carbon Dioxide 24 mmol/L (23-31); Chloride 108 mmol/L (98-107); Estimated GFR 66; Glucose 100 mg/dL (80-115); Potassium 3.7 mmol/L (3.5-5.1); Sodium 140 mmol/L (136-145)
[2022-06-12] MEDS: Amlodipine 5 MG TAB PO SCH (08:37)
[2022-06-12] MEDS: Tamsulosin HCl 0.4 MG CAP PO SCH (08:38)
[2022-06-12] MEDS: Carvedilol 25 MG TAB PO SCH ×2 (08:38→20:28)
[2022-06-12] MEDS: Clopidogrel Bisulfate 75 MG TAB PO SCH (08:38)
[2022-06-12] MEDS: Sodium Bicarbonate Tab 325 MG TAB PO SCH ×2 (08:39→20:27)
[2022-06-12] MEDS: Polyethylene Glycol 3350 17 GM Packet PO SCH (08:39)
[2022-06-12] MEDS: HYDROcodone/Acetaminophen 5/325 mg Tablet PO PRN ×2 (09:03→13:22)
[2022-06-12] MEDS ORDERED: Gabapentin 300 MG CAP PO SCH (13:30)
[2022-06-12] MEDS: Atorvastatin Calcium 20 MG TAB PO SCH (20:28)
[2022-06-12] MEDS: traZODone HCl 50 MG TAB PO PRN (20:28)
[2022-06-12] MEDS: Gabapentin 300 MG CAP PO SCH (20:28)
[2022-06-13 06:17] LABS: #Basophils 0.1 thou/uL (0.0-0.2); #Eosinphils 0.2 thou/uL (0.0-0.7); #Lymphocytes 1.5 thou/uL (1.20-3.40); #Monocytes 1.3 thou/uL (0.11-0.59); #Neutrophils 10.5 thou/uL (1.40-6.50); %Basophils 0.9 % (0.0-1.0); %Eosinophils 1.2 % (0.0-10.0); %Monocytes 9.5 % (0.0-10.0); %Neutrophils 77.3 % (42.0-75.0); Hemoglobin 7.7 g/dL (14.0-18.0); Mean Corpuscular HGB CONC 32.2 g/dL (32.0-36.0); Mean Corpuscular Hemoglobin 30.6 pg (27.0-31.0); Mean Corpuscular Volume 95.2 fl (78.0-98.0); Mean Platelet Volume 5.3 fL (7.4-10.4); Platelet Count 511 10x3/uL (130-400); RBC Distribution Width 14.8 % (11.5-14.5); Red Blood Cell (RBC) Count 2.52 mill/uL (4.70-6.10); White Blood Cell (WBC) Count 13.6 10x3/uL (4.8-10.8)
[2022-06-13 06:31] LABS: Anion Gap 12 mmol/L (10-20); BUN (Urea Nitrogen) 14 mg/dL (8.4-25.7); Calc. Creatinine Clearance 68 mL/min (70-130); Calcium 8.3 mg/dL (7.8-10.44); Carbon Dioxide 23 mmol/L (23-31); Chloride 109 mmol/L (98-107); Estimated GFR 63; Glucose 96 mg/dL (80-115); Sodium 140 mmol/L (136-145)
[2022-06-13] MEDS: Tamsulosin HCl 0.4 MG CAP PO SCH (08:53)
[2022-06-13] MEDS: Clopidogrel Bisulfate 75 MG TAB PO SCH (08:53)
[2022-06-13] MEDS: Gabapentin 300 MG CAP PO SCH ×2 (08:54→20:46)
[2022-06-13] MEDS: Amlodipine 5 MG TAB PO SCH (08:54)
[2022-06-13] MEDS: Carvedilol 25 MG TAB PO SCH ×2 (08:55→20:46)
[2022-06-13] MEDS: Polyethylene Glycol 3350 17 GM Packet PO SCH (08:56)
[2022-06-13] MEDS: Sodium Bicarbonate Tab 325 MG TAB PO SCH ×2 (08:56→20:46)
[2022-06-13] MEDS: HYDROcodone/Acetaminophen 5/325 mg Tablet PO PRN (14:13)
[2022-06-13] MEDS: traZODone HCl 50 MG TAB PO PRN (20:45)
[2022-06-13] MEDS: Atorvastatin Calcium 20 MG TAB PO SCH (20:46)
[2022-06-14 06:08] LABS: #Basophils 0.1 thou/uL (0.0-0.2); #Eosinphils 0.3 thou/uL (0.0-0.7); #Lymphocytes 1.3 thou/uL (1.20-3.40); #Monocytes 1.5 thou/uL (0.11-0.59); #Neutrophils 9.2 thou/uL (1.40-6.50); %Basophils 0.8 % (0.0-1.0); %Eosinophils 2.1 % (0.0-10.0); %Lymphocytes 10.8 % (21.0-51.0); %Monocytes 11.8 % (0.0-10.0); %Neutrophils 74.6 % (42.0-75.0); Hemoglobin 7.5 g/dL (14.0-18.0); Mean Corpuscular HGB CONC 31.6 g/dL (32.0-36.0); Mean Corpuscular Hemoglobin 29.9 pg (27.0-31.0); Mean Corpuscular Volume 94.7 fl (78.0-98.0); Mean Platelet Volume 5.2 fL (7.4-10.4); Platelet Count 528 10x3/uL (130-400); RBC Distribution Width 14.8 % (11.5-14.5); White Blood Cell (WBC) Count 12.3 10x3/uL (4.8-10.8)
[2022-06-14 06:22] LABS: Anion Gap 12 mmol/L (10-20); BUN (Urea Nitrogen) 16 mg/dL (8.4-25.7); Calc. Creatinine Clearance 71 mL/min (70-130); Carbon Dioxide 23 mmol/L (23-31); Chloride 108 mmol/L (98-107); Estimated GFR 67; Glucose 97 mg/dL (80-115); Potassium 3.7 mmol/L (3.5-5.1); Sodium 139 mmol/L (136-145)
[2022-06-14] MEDS: HYDROcodone/Acetaminophen 5/325 mg Tablet PO PRN ×2 (08:00→20:39)
[2022-06-14] MEDS: Tamsulosin HCl 0.4 MG CAP PO SCH (08:00)
[2022-06-14] MEDS: Sodium Bicarbonate Tab 325 MG TAB PO SCH ×2 (08:01→20:38)
[2022-06-14] MEDS: Amlodipine 5 MG TAB PO SCH (08:02)
[2022-06-14] MEDS: Carvedilol 25 MG TAB PO SCH ×2 (08:02→20:38)
[2022-06-14] MEDS: Clopidogrel Bisulfate 75 MG TAB PO SCH (08:02)
[2022-06-14] MEDS: Gabapentin 300 MG CAP PO SCH ×2 (08:03→20:38)
[2022-06-14] MEDS: Polyethylene Glycol 3350 17 GM Packet PO SCH (09:00)
[2022-06-14] MEDS: traZODone HCl 50 MG TAB PO PRN (20:38)
[2022-06-14] MEDS: Atorvastatin Calcium 20 MG TAB PO SCH (20:38)
[2022-06-15 05:59] LABS: #Basophils 0.1 thou/uL (0.0-0.2); #Eosinphils 0.2 thou/uL (0.0-0.7); #Lymphocytes 1.4 thou/uL (1.20-3.40); #Monocytes 1.2 thou/uL (0.11-0.59); #Neutrophils 6.6 thou/uL (1.40-6.50); %Basophils 0.9 % (0.0-1.0); %Eosinophils 2.1 % (0.0-10.0); %Lymphocytes 14.6 % (21.0-51.0); %Monocytes 12.9 % (0.0-10.0); %Neutrophils 69.5 % (42.0-75.0); Hemoglobin 7.9 g/dL (14.0-18.0); Mean Corpuscular HGB CONC 31.6 g/dL (32.0-36.0); Mean Corpuscular Hemoglobin 30.2 pg (27.0-31.0); Mean Corpuscular Volume 95.5 fl (78.0-98.0); Mean Platelet Volume 4.6 fL (7.4-10.4); Platelet Count 570 10x3/uL (130-400); RBC Distribution Width 14.8 % (11.5-14.5); Red Blood Cell (RBC) Count 2.62 mill/uL (4.70-6.10); White Blood Cell (WBC) Count 9.5 10x3/uL (4.8-10.8)
[2022-06-15 06:14] LABS: Anion Gap 12 mmol/L (10-20); BUN (Urea Nitrogen) 17 mg/dL (8.4-25.7); Calc. Creatinine Clearance 64 mL/min (70-130); Chloride 109 mmol/L (98-107); Estimated GFR 58; Glucose 113 mg/dL (80-115); Potassium 3.9 mmol/L (3.5-5.1); Sodium 139 mmol/L (136-145)
[2022-06-15 06:16] LABS: Calcium 8.2 mg/dL (7.6-10.4); Carbon Dioxide 22 mmol/L (23-31)
[2022-06-15] MEDS: HYDROcodone/Acetaminophen 5/325 mg Tablet PO PRN ×3 (07:11→20:35)
[2022-06-15] MEDS: Tamsulosin HCl 0.4 MG CAP PO SCH (08:11)
[2022-06-15] MEDS: Amlodipine 5 MG TAB PO SCH (08:11)
[2022-06-15] MEDS: Clopidogrel Bisulfate 75 MG TAB PO SCH (08:11)
[2022-06-15] MEDS: Carvedilol 25 MG TAB PO SCH ×2 (08:11→20:31)
[2022-06-15] MEDS: Sodium Bicarbonate Tab 325 MG TAB PO SCH ×2 (08:11→20:31)
[2022-06-15] MEDS: Gabapentin 300 MG CAP PO SCH ×2 (08:12→20:31)
[2022-06-15] MEDS: Polyethylene Glycol 3350 17 GM Packet PO SCH (09:01)
[2022-06-15] MEDS: Saccharomyces boulardii 250 MG CAP PO SCH (09:03)
[2022-06-15] MEDS: Furosemide 20 MG TAB PO SCH ×2 (09:03→13:40)
[2022-06-15] MEDS: Ferrous Sulfate 325 MG TAB PO SCH (16:14)
[2022-06-15] MEDS: Atorvastatin Calcium 20 MG TAB PO SCH (20:30)
[2022-06-15] MEDS: traZODone HCl 50 MG TAB PO PRN (20:30)
[2022-06-16 03:26] VITALS: BMI 28.4
[2022-06-16] MEDS: HYDROcodone/Acetaminophen 5/325 mg Tablet PO PRN (06:28)
[2022-06-16 07:40] VITALS: BP 134/75; TEMP 97.8
[2022-06-16] MEDS: Ferrous Sulfate 325 MG TAB PO SCH (08:15)
[2022-06-16] MEDS: Saccharomyces boulardii 250 MG CAP PO SCH (08:15)
[2022-06-16] MEDS: Gabapentin 300 MG CAP PO SCH (08:16)
[2022-06-16] MEDS: Tamsulosin HCl 0.4 MG CAP PO SCH (08:16)
[2022-06-16] MEDS: Carvedilol 25 MG TAB PO SCH (08:16)
[2022-06-16] MEDS: Sodium Bicarbonate Tab 325 MG TAB PO SCH (08:16)
[2022-06-16] MEDS: Amlodipine 5 MG TAB PO SCH (08:16)
[2022-06-16] MEDS: Clopidogrel Bisulfate 75 MG TAB PO SCH (08:16)
[2022-06-16] MEDS: Polyethylene Glycol 3350 17 GM Packet PO SCH (08:18)
== END 2022-06-16 15:55 | disposition home health service (06) | DRG 947 ==
LOC: UNDOADMIN 13:42 → NAV ACUTE 13:42
PROVIDERS: ADMIT Family Medicine; ATTEND Family Medicine
DX: R53.1 Weakness (principal); J18.9 Pneumonia, unspecified organism; I50.32 Chronic diastolic (congestive) heart failure; I13.0 Hypertensive heart and chronic kidney disease with heart failure and stage 1 through stage 4 chronic kidney disease, or unspecified chronic kidney disease; I25.10 Atherosclerotic heart disease of native coronary artery without angina pectoris; M19.90 Unspecified osteoarthritis, unspecified site; G89.29 Other chronic pain; M96.1 Postlaminectomy syndrome, not elsewhere classified; E78.2 Mixed hyperlipidemia; K59.00 Constipation, unspecified; D50.9 Iron deficiency anemia, unspecified; I25.2 Old myocardial infarction; Z79.899 Other long term (current) drug therapy; Z95.5 Presence of coronary angioplasty implant and graft; Z98.1 Arthrodesis status; Z95.1 Presence of aortocoronary bypass graft; Z90.49 Acquired absence of other specified parts of digestive tract; Z86.73 Personal history of transient ischemic attack (TIA), and cerebral infarction without residual deficits; Z98.41 Cataract extraction status, right eye; Z98.42 Cataract extraction status, left eye; Z79.02 Long term (current) use of antithrombotics/antiplatelets; Z79.82 Long term (current) use of aspirin; N18.31 Chronic kidney disease, stage 3a
CPT/HCPCS: 36415; 71045; 72125; 80048; 80053; 85025

== ENCOUNTER 2023-01-21 18:25 | Emergency (ER) | payer MEDICARE, OTHER ==
[2023-01-21] MEDS ORDERED: Morphine 4 MG/ML VIAL ONE (18:49)
[2023-01-21] MEDS ORDERED: Ondansetron PF 4 MG/2 ML Vial ONE (18:49)
[2023-01-21 18:53] LABS: #Basophils 0.1 thou/uL (0.0-0.2); #Eosinphils 0.1 thou/uL (0.0-0.7); #Lymphocytes 1.5 thou/uL (1.20-3.40); #Monocytes 0.8 thou/uL (0.11-0.59); #Neutrophils 5.2 thou/uL (1.40-6.50); %Eosinophils 1.3 % (0.0-10.0); %Lymphocytes 19.1 % (21.0-51.0); %Monocytes 10.2 % (0.0-10.0); %Neutrophils 68.4 % (42.0-75.0); Hematocrit 43.9 % (42.0-52.0); Hemoglobin 14.4 g/dL (14.0-18.0); Mean Corpuscular HGB CONC 32.7 g/dL (32.0-36.0); Mean Corpuscular Volume 91.8 fl (78.0-98.0); Mean Platelet Volume 6.5 fL (7.4-10.4); Platelet Count 294 10x3/uL (130-400); RBC Distribution Width 11.8 % (11.5-14.5); Red Blood Cell (RBC) Count 4.79 mill/uL (4.70-6.10); White Blood Cell (WBC) Count 7.6 10x3/uL (4.8-10.8)
[2023-01-21 19:05] LABS: INR-International Normal Ratio 1.1; Prothrombin Time 14.2 sec (12.0-14.7)
[2023-01-21 19:06] LABS: PTT 27.7 sec (22.9-36.1)
[2023-01-21 19:12] LABS: ALT (SGPT) 12 U/L (8-55); AST (SGOT) 14 U/L (5-34); Albumin 3.9 g/dL (3.4-4.8); Alkaline Phosphatase 75 U/L (40-110); Anion Gap 15 mmol/L (10-20); BUN (Urea Nitrogen) 24 mg/dL (8.4-25.7); Bilirubin, Total 1.2 mg/dL (0.2-1.2); Calc. Creatinine Clearance 0 mL/min (70-130); Calcium 8.9 mg/dL (7.8-10.44); Carbon Dioxide 22 mmol/L (23-31); Chloride 107 mmol/L (98-107); Estimated GFR 45; Globulin 3.3 g/dL (2.4-3.5); Glucose 93 mg/dL (80-115); Potassium 4.3 mmol/L (3.5-5.1); Protein, Total 7.2 g/dL (5.8-8.1); Sodium 140 mmol/L (136-145)
[2023-01-21 19:13] LABS: Troponin I Less than 0.010 ng/mL (< 0.028)
[2023-01-21] MEDS ORDERED: fentaNYL 50 mcg/mL 1 mL Vial ONE (19:41)
[2023-01-21] MEDS ORDERED: traMADol HCl 50 MG TAB ONE (21:03)
== END 2023-01-21 21:12 | disposition home or self-care (01) ==
LOC: NAV ERS 18:25
DX: S40.012A Contusion of left shoulder, initial encounter (principal); S43.492A Other sprain of left shoulder joint, initial encounter; S20.219A Contusion of unspecified front wall of thorax, initial encounter; I11.0 Hypertensive heart disease with heart failure; I50.9 Heart failure, unspecified; E78.5 Hyperlipidemia, unspecified; Z79.82 Long term (current) use of aspirin; V40.5XXA Car driver injured in collision with pedestrian or animal in traffic accident, initial encounter
CPT/HCPCS: 70450; 71045; 71260; 72125; 74177; 80053; 84484; 85025; 85610; 85730; 93005; 96374; 96375; J2270; J2405; J3010; Q9967